=== PATIENT | female | born 1980 | race African-American/Black ===

== ENCOUNTER 2018-02-03 17:54 | Emergency (ER) | payer OTHER ==
[~2018-02-03] VITALS: Ht 170.2 cm; Wt 56.7 kg
[~2018-02-03 17:54] MED LIST: ACTICIN 5% CREA60 G1 TOP; MEDROLDOSEPACK PO; RID COMPLETE 11 EACH TP
[2018-02-03] MEDS ORDERED: MOBIC15 MG PO (19:44)
== END 2018-02-03 19:56 | disposition home or self-care (01) ==
LOC: ER 17:54
DX: S16.1XXA Strain of muscle, fascia and tendon at neck level, initial encounter (principal); F17.210 Nicotine dependence, cigarettes, uncomplicated; F10.99 Alcohol use, unspecified with unspecified alcohol-induced disorder; Z88.0 Allergy status to penicillin; V49.49XA Driver injured in collision with other motor vehicles in traffic accident, initial encounter; Y93.89 Activity, other specified; Y92.89 Other specified places as the place of occurrence of the external cause; Y99.8 Other external cause status